=== PATIENT | female | born 1975 | race Two or more races ===

== ENCOUNTER 2018-09-06 01:07 | Inpatient (IN) | payer MEDICAID ==
[~2018-09-06] VITALS: Ht 170.2 cm; Wt 90.7 kg
[2018-09-06] MEDS ORDERED: SODIUM CHLORIDE 0.9% 1,000 ML IV ONE (02:06)
[2018-09-06 02:55] LABS: CLARITY URINE CLOUDY (CLEAR); COLOR URINE YELLOW (YELLOW); KETONES URINE 1+ (NEGATIVE); LEUKOCYTE ESTERASE URINE TRACE (NEGATIVE); NITRITE URINE NEGATIVE (NEGATIVE); OCCULT BLOOD URINE NEGATIVE (NEGATIVE); PH URINE 5.5 (4.5-8.0); PROTEIN URINE TRACE (NEGATIVE); SPECIFIC GRAVITY URINE 1.018 (1.005-1.030)
[2018-09-06 02:58] LABS: CHLORIDE 107 mEq/L (98-107)
[2018-09-06 03:01] LABS: BASOPHILS % 0.8 % (0.0-2.0); EOSINOPHILS % 3.2 % (0.0-5.0); HEMATOCRIT. 43.4 % (36.0-48.0); HEMOGLOBIN. 14.7 g/dL (12.0-16.0); LYMPHOCYTES % 44.4 % (20.0-50.0); MEAN CORPUSCULAR HEMOGLOBIN 29.3 pg (28.0-32.0); MEAN CORPUSCULAR VOLUME 86.4 fL (81.0-99.0); MEAN PLATELET VOLUME 8.2 fl (7.4-10.4); MONOCYTES % 7.2 % (2.0-8.0); NEUTROPHILS % 44.4 % (40.0-76.0); PLATELET 165 x1000/uL (130-400); RED BLOOD CELL COUNT 5.02 mill/uL (4.2-5.4); RED CELL DISTRIBUTION WIDTH 16.5 % (11.6-14.6)
[2018-09-06 03:02] LABS: ETHANOL BLOOD 117 mg/dL
[2018-09-06] MEDS ORDERED: FOLIC ACID 1 MG, THIAMINE HCL 100 MG, MVI, ADULT NO.1 10 ML in DEXTROSE 5% WATER 1,000 ML IV ONE ×4 (04:15)
[2018-09-06] MEDS ORDERED: LORAZEPAM 2MG/ML CPJ IV ONE (04:15)
[2018-09-06] MEDS: ASPIRIN 325MG TABLET PO NR ×2 (04:20→05:01)
[2018-09-06] MEDS ORDERED: FOLIC ACID 1 MG, MVI, ADULT NO.1 10 ML in DEXTROSE 5% WATER 1,000 ML IV ONE ×3 (04:30)
[2018-09-06] MEDS ORDERED: THIAMINE HCL 100MG TABLET PO NR (04:30)
[2018-09-06] MEDS ORDERED: CLONIDINE 0.1MG TABLET PO PRN (05:45)
[2018-09-06] MEDS ORDERED: MAGNESIUM/ALUMINUM HYDROXIDE/SIMETHICONE 30ML UDC PO PRN (05:45)
[2018-09-06] MEDS ORDERED: DOCUSATE SODIUM 100MG CAPSULE PO PRN (05:45)
[2018-09-06] MEDS: DEXT 5%/0.45% NACL 1000ML 1,000 ML IV SCH ×2 (06:41→19:02)
[2018-09-06] MEDS: THIAMINE HCL 100MG TABLET PO SCH (09:00)
[2018-09-06] MEDS: FOLIC ACID 1MG TABLET PO SCH (09:00)
[2018-09-06 12:08] VITALS: BP 147/88
[2018-09-06 12:16] VITALS: BP 147/88
[2018-09-06] MEDS ORDERED: CHLORDIAZEPOXIDE 25MG CAPSULE PO SCH (15:05)
[2018-09-06 16:00] VITALS: BP 145/81
[2018-09-06 20:00] VITALS: BP 157/94
[2018-09-06] MEDS: LORAZEPAM 2MG/ML CPJ IV PRN (20:44)
[2018-09-06] MEDS: ONDANSETRON HCL 4MG/2ML INJ IV PRN (20:45)
[2018-09-06 22:00] VITALS: BP 152/82
[2018-09-06] MEDS: CHLORDIAZEPOXIDE 25MG CAPSULE PO SCH (22:16)
[2018-09-07 04:00] VITALS: BP 139/84
[2018-09-07] MEDS: CHLORDIAZEPOXIDE 25MG CAPSULE PO SCH ×3 (05:49→21:25)
[2018-09-07 06:54] LABS: BASOPHILS % 0.5 % (0.0-2.0); EOSINOPHILS % 6.4 % (0.0-5.0); HEMATOCRIT. 41.8 % (36.0-48.0); HEMOGLOBIN. 14.3 g/dL (12.0-16.0); LYMPHOCYTES % 35.6 % (20.0-50.0); MEAN CORPUSCULAR HEMOGLOBIN 29.5 pg (28.0-32.0); MEAN CORPUSCULAR VOLUME 86.4 fL (81.0-99.0); MEAN PLATELET VOLUME 8.7 fl (7.4-10.4); MONOCYTES % 7.5 % (2.0-8.0); PLATELET 112 x1000/uL (130-400); RED BLOOD CELL COUNT 4.84 mill/uL (4.2-5.4)
[2018-09-07 07:26] LABS: *AMPHETAMINES SCREEN URINE NEGATIVE (NEGATIVE); *BARBITURATES SCREEN URINE NEGATIVE (NEGATIVE)
[2018-09-07 07:27] LABS: METHADONE URINE SCREEN NEGATIVE (NEGATIVE); OPIATES URINE SCREEN NEGATIVE (NEGATIVE); PHENCYCLIDINE URINE SCREEN NEGATIVE (NEGATIVE)
[2018-09-07 07:34] LABS: *BENZODIAZEPINES SCREEN URINE PRESUMTIVE POSITIVE (NEGATIVE); *COCAINE SCREEN URINE PRESUMTIVE POSITIVE (NEGATIVE); CANNABINOID URINE SCREEN PRESUMTIVE POSITIVE (NEGATIVE)
[2018-09-07 08:00] VITALS: BP 148/69
[2018-09-07 08:56] LABS: CHLORIDE 108 mEq/L (98-107)
[2018-09-07] MEDS: THIAMINE HCL 100MG TABLET PO SCH (09:16)
[2018-09-07] MEDS: FOLIC ACID 1MG TABLET PO SCH (09:16)
[2018-09-07] MEDS: LORAZEPAM 2MG/ML CPJ IV PRN (09:43)
[2018-09-07 12:00] VITALS: BP 109/89
[2018-09-07 12:25] LABS: CHLORIDE 108 mEq/L (98-107)
[2018-09-07 16:00] VITALS: BP 129/83
[2018-09-07 20:00] VITALS: BP 134/86
[2018-09-07] MEDS: DEXT 5%/0.45% NACL 1000ML 1,000 ML IV SCH (21:25)
[2018-09-07] MEDS: HYDROCODONE/ACETAMINOPHEN 5/325MG TABLET PO PRN (21:25)
[2018-09-07] MEDS: NICOTINE 14MG PATCH TD SCH (22:22)
[2018-09-08] VITALS: BP 141/86
[2018-09-08 04:00] VITALS: BP 129/86
[2018-09-08] MEDS: CHLORDIAZEPOXIDE 25MG CAPSULE PO SCH ×3 (06:01→21:21)
[2018-09-08 08:00] VITALS: BP 133/87
[2018-09-08] MEDS: FOLIC ACID 1MG TABLET PO SCH (09:01)
[2018-09-08] MEDS: THIAMINE HCL 100MG TABLET PO SCH (09:01)
[2018-09-08] MEDS: NICOTINE 14MG PATCH TD SCH (09:02)
[2018-09-08] MEDS: HYDROCODONE/ACETAMINOPHEN 5/325MG TABLET PO PRN (09:34)
[2018-09-08] MEDS: DEXT 5%/0.45% NACL 1000ML 1,000 ML IV SCH ×2 (11:02→21:22)
[2018-09-08 12:00] VITALS: BP 138/84
[2018-09-08 16:00] VITALS: BP 129/91
[2018-09-08 21:00] VITALS: BP 133/80
[2018-09-08] MEDS: LORAZEPAM 2MG/ML CPJ IV PRN (21:21)
[2018-09-09 02:00] VITALS: BP 129/80
[2018-09-09] MEDS: CHLORDIAZEPOXIDE 25MG CAPSULE PO SCH ×3 (06:22→21:52)
[2018-09-09 08:00] VITALS: BP 125/79
[2018-09-09] MEDS: THIAMINE HCL 100MG TABLET PO SCH (10:10)
[2018-09-09] MEDS: FOLIC ACID 1MG TABLET PO SCH (10:10)
[2018-09-09] MEDS: NICOTINE 14MG PATCH TD SCH (10:10)
[2018-09-09 12:00] VITALS: BP 124/96
[2018-09-09] MEDS: DEXT 5%/0.45% NACL 1000ML 1,000 ML IV SCH (13:41)
[2018-09-09 16:00] VITALS: BP 126/83
[2018-09-09] MEDS: LORAZEPAM 2MG/ML CPJ IV PRN (16:02)
[2018-09-09] MEDS ORDERED: NITROGLYCERIN 0.4MG TABLET SL SL PRN (16:15)
[2018-09-09] MEDS ORDERED: MORPHINE SULFATE 4 MG/ML CPJ (NOT FOR IM USE) IV NR (16:15)
[2018-09-09] MEDS: HYDROCODONE/ACETAMINOPHEN 5/325MG TABLET PO PRN (21:53)
[2018-09-10 02:24] VITALS: BP 126/75
[2018-09-10] MEDS: LORAZEPAM 2MG/ML CPJ IV PRN ×2 (02:32→11:42)
[2018-09-10] MEDS: ONDANSETRON HCL 4MG/2ML INJ IV PRN (02:53)
[2018-09-10 04:00] VITALS: BP 94/57
[2018-09-10] MEDS: CHLORDIAZEPOXIDE 25MG CAPSULE PO SCH ×3 (06:36→21:03)
[2018-09-10] MEDS: DEXT 5%/0.45% NACL 1000ML 1,000 ML IV SCH ×2 (06:36→16:00)
[2018-09-10 08:00] VITALS: BP 111/65
[2018-09-10] MEDS: THIAMINE HCL 100MG TABLET PO SCH (09:14)
[2018-09-10] MEDS: FOLIC ACID 1MG TABLET PO SCH (09:15)
[2018-09-10] MEDS: NICOTINE 14MG PATCH TD SCH (09:15)
[2018-09-10] MEDS: HYDROCODONE/ACETAMINOPHEN 5/325MG TABLET PO PRN (11:42)
[2018-09-10 12:00] VITALS: BP 110/70
[2018-09-10 16:00] VITALS: BP 111/76
[2018-09-10 20:00] VITALS: BP 126/76
[2018-09-11] VITALS: BP 103/74
[2018-09-11] MEDS: LORAZEPAM 2MG/ML CPJ IV PRN (00:28)
[2018-09-11 04:00] VITALS: BP 118/68
[2018-09-11] MEDS: CHLORDIAZEPOXIDE 25MG CAPSULE PO SCH (05:31)
[2018-09-11] MEDS: DEXT 5%/0.45% NACL 1000ML 1,000 ML IV SCH (05:32)
[2018-09-11 08:00] VITALS: BP 131/80
[2018-09-11] MEDS: THIAMINE HCL 100MG TABLET PO SCH (09:24)
[2018-09-11] MEDS: FOLIC ACID 1MG TABLET PO SCH (09:24)
[2018-09-11] MEDS: NICOTINE 14MG PATCH TD SCH (09:24)
== END 2018-09-11 12:45 | DRG 53 ==
LOC: ER 01:07 → 7WST 04:15 → ENRESERV 10:17
PROVIDERS: ADMIT Hospitalist; ATTEND Hospitalist
DX: G40.89 Other seizures (principal); E87.6 Hypokalemia; F10.239 Alcohol dependence with withdrawal, unspecified; F12.90 Cannabis use, unspecified, uncomplicated; F17.200 Nicotine dependence, unspecified, uncomplicated; I10 Essential (primary) hypertension; N39.0 Urinary tract infection, site not specified; F19.10 Other psychoactive substance abuse, uncomplicated
CPT/HCPCS: 36415; 71045; 80305; 80307; 80329; 82140; 83605; 84484; 93005; 96374; 96375; 97116; 97161; 99285; A6261; C1893; G0482; J2060; J2405; J3411; J3490; J7030; J7070

== ENCOUNTER 2020-12-13 17:14 | Emergency (ER) | payer MEDICAID ==
[~2020-12-13] VITALS: Ht 170.2 cm; Wt 98.0 kg
[2020-12-13 17:23] VITALS: BP 107/66
== END 2020-12-13 18:18 | disposition left against medical advice (07) ==
LOC: ER 17:14
DX: F10.129 Alcohol abuse with intoxication, unspecified (principal); Y90.9 Presence of alcohol in blood, level not specified; I50.9 Heart failure, unspecified; Z88.1 Allergy status to other antibiotic agents; Z88.2 Allergy status to sulfonamides; Z88.3 Allergy status to other anti-infective agents; Z88.6 Allergy status to analgesic agent; Z86.73 Personal history of transient ischemic attack (TIA), and cerebral infarction without residual deficits
CPT/HCPCS: 99283

== ENCOUNTER 2022-03-29 16:24 | Emergency (ER) | payer MEDICAID ==
[~2022-03-29] VITALS: Ht 170.2 cm; Wt 75.0 kg
[2022-03-29 16:37] VITALS: BP 128/78
== END 2022-03-29 23:10 | disposition left against medical advice (07) ==
LOC: ER 16:24
DX: Z53.21 Procedure and treatment not carried out due to patient leaving prior to being seen by health care provider (principal)

== ENCOUNTER 2022-04-02 11:28 | Emergency (ER) | payer MEDICAID ==
[~2022-04-02] VITALS: Ht 167.6 cm; Wt 114.0 kg
[2022-04-02] MEDS ORDERED: TOPUD PO (13:36)
[2022-04-02 13:40] VITALS: BP 123/76
== END 2022-04-02 13:50 | disposition home or self-care (01) ==
LOC: ER 11:28
DX: M79.89 Other specified soft tissue disorders (principal); M79.605 Pain in left leg; F12.10 Cannabis abuse, uncomplicated; I50.9 Heart failure, unspecified; Z88.6 Allergy status to analgesic agent; Z88.0 Allergy status to penicillin; Z88.1 Allergy status to other antibiotic agents; Z88.5 Allergy status to narcotic agent; Z88.2 Allergy status to sulfonamides; Z86.73 Personal history of transient ischemic attack (TIA), and cerebral infarction without residual deficits
CPT/HCPCS: 73590; 93971; 99284